=== PATIENT | male | born 1975 | race Caucasian/White ===

== ENCOUNTER 2022-02-26 21:36 | Emergency (ER) | payer SELFPAY ==
[~2022-02-26] VITALS: Ht 167.6 cm; Wt 92.0 kg
[2022-02-26 21:41] VITALS: TEMP 97.5
[2022-02-26 23:28] VITALS: BP 146/78; PULSE 76
== END 2022-02-26 23:28 | disposition home or self-care (01) ==
LOC: COL.ER 21:36
DX: S51.812A Laceration without foreign body of left forearm, initial encounter (principal); Z28.310 Unvaccinated for COVID-19; W26.8XXA Contact with other sharp object(s), not elsewhere classified, initial encounter